=== PATIENT | female | born 1985 | race African-American/Black ===

== ENCOUNTER 2020-04-12 14:34 | Emergency (ER) | payer SELFPAY ==
[2020-04-12] MEDS ORDERED: Sodium Chloride 0.9% 10 ML Syringe FLUSH PRN (14:52)
[2020-04-12] MEDS ORDERED: fentaNYL 100 MCG/2 ML SDV IVPUSH ONE (14:52)
--- NOTE | 2020-04-12 14:57 | EDM.PDOC ---
ED HPI GENERAL MEDICAL PROBLEM - General Stated Complaint: FELL Time Seen by Provider: 04/12/20 14:39 Source of Information: Reports: Patient History Limitations: Reports: No Limitations - History of Present Illness INITIAL COMMENTS - FREE TEXT/NARRATIVE: Jessica is a 34 y/o female who comes to the ER today with pain in her right shoulder. She reports that last night about 2330 she tripped on her skirt and fell down 4 steps in her home. She was able to get up and denies any LOC with the fall. She was sore last night and had a hard time sleeping, but today the pain is getting worse in her right shoulder and she feels more achy. She did take APAP awhile ago and it has not really helped. Lower Back Pain Score (Numeric/FACES): 6 - Related Data Allergies Allergy/AdvReac Type Severity Reaction Status Date / Time ibuprofen Allergy Facial Verified 04/12/20 14:59 Swelling Home Meds: Home Meds . [No Known Home Meds] 04/12/20 [History] Review of Systems - Review of Systems Review Of Systems: See Below Constitutional: Reports: No Symptoms Eyes: Reports: No Symptoms Ears: Reports: No Symptoms Nose: Reports: No Symptoms Mouth/Throat: Reports: No Symptoms Respiratory: Reports: No Symptoms Cardiovascular: Reports: No Symptoms GI/Abdominal: Reports: No Symptoms Genitourinary: Reports: No Symptoms Musculoskeletal: Reports: Shoulder Pain (right), Back Pain Skin: Reports: No Symptoms Neurological: Reports: No Symptoms Psychiatric: Reports: No Symptoms ED EXAM, GENERAL - Physical Exam Exam: See Below Exam Limited By: No Limitations General Appearance: Alert, WD/WN, No Apparent Distress (Adult female, NAD.) Ears: Hearing Grossly Normal Nose: Normal Inspection Throat/Mouth: Normal Inspection, Normal Voice Head: Atraumatic, Normocephalic Neck: Normal Inspection, Non-Tender Respiratory/Chest: No Respiratory Distress, Lungs Clear, Chest Non-Tender Cardiovascular: Regular Rate, Rhythm GI/Abdominal: Soft, Non-Tender (Female) Exam: Deferred Rectal (Female) Exam: Deferred Back Exam: Normal Inspection Extremities: Other (note defority to right shoulder, unable to left her right arm without pain, CMS to right upper ext WNL.) Neurological: Alert, Oriented, CN II-XII Intact, Normal Cognition, Normal Gait Psychiatric: Normal Affect, Normal Mood Skin Exam: Warm, Dry, Intact, Normal Color, Decubitus Lymphatic: No Adenopathy Course - Vital Signs Text/Narrative:: The patient was seen by the COMMISS[facility] AUDITOR. XRay of her R shoulder was ordered. She was given Fentanyl 100mcg IVP for pain. 1540 Xray reviewed. No fx noted, appears without dislocation on xray and read as normal by radiologist. Patient still unable to extend arm and note right sided deformity. Patient was given Dilaudid 1mg IVP. External Rotation reduction method was used and a small click noted in the shoulder and patient had immediate relief of pain. Should immobilizer placed. Postreduction film obtained and compared to previous exam. 1605 Postreduction film appears to have humeral head more anterior, but on clinical exam patient is more comfortable and deformity to her right shoulder is resolved. Patient was given discharge instructions and left the ER in stable condition with her sister. Last Recorded V/S: Last Vital Signs Temp 36.6 C 04/12/20 14:40 Pulse 89 04/12/20 14:40 Resp 16 04/12/20 14:40 BP 138/90 04/12/20 14:40 Pulse Ox 98 04/12/20 14:40 - Orders/Labs/Meds Orders: Active Orders 24 hr Category Date Time Status Shoulder 1V Rt [CR] Stat Exams 04/12/20 15:45 Ordered Sodium Chloride 0.9% [Saline Flush] Med 04/12/20 14:52 Ordered 10 ml FLUSH ASDIRECTED PRN Saline Lock Insert [OM.PC] Stat Oth 04/12/20 14:52 Ordered Medication Orders Sodium Chloride (Saline Flush) 10 ml FLUSH ASDIRECTED PRN PRN Reason: Keep Vein Open Meds: Medications Generic Name Dose Route Start Last Admin Trade Name Freq PRN Reason Stop Dose Admin Sodium Chloride 10 ml 04/12/20 14:52 Saline Flush FLUSH ASDIRECTED PRN Keep Vein Open Discontinued Medications Generic Name Dose Route Start Last Admin Trade Name Freq PRN Reason Stop Dose Admin Fentanyl 100 mcg 04/12/20 14:52 04/12/20 15:09 Sublimaze IVPUSH 04/12/20 14:53 100 mcg ONETIME ONE Administration Hydromorphone HCl 1 mg 04/12/20 15:38 04/12/20 15:43 Dilaudid IVPUSH 04/12/20 15:39 1 mg ONETIME ONE Administration - Radiology Interpretation Free Text/Narrative:: XR Right Shoulder=no fx or dislocation (See Radiology Report) XR Right Shoulder 2V Post Reduction=no fx, appears a bit more anteriorly presented Departure - Departure Time of Disposition: 16:10 Disposition: Home, Self-Care 01 Clinical Impression: Fall Qualifiers: Encounter type: initial encounter Qualified Code(s): W19.XXXA - Unspecified fall, initial encounter Anterior dislocation of right shoulder Qualifiers: Encounter type: initial encounter Qualified Code(s): S43.014A - Anterior dislocation of right humerus, initial encounter - Discharge Information *PRESCRIPTION DRUG MONITORING PROGRAM REVIEWED*: No *COPY OF PRESCRIPTION DRUG MONITORING REPORT IN PATIENT YAYA: No Instructions: Shoulder Dislocation, [id number] Referrals: PCP,None [Primary Care Provider] - Forms: ED Department Discharge, ED Return to Work/School Form Additional Instructions: -Wear the shoulder immobilizer for 48 hours, then remove and see how you do without it. -If your pain gets worse or it seems that you cannot move your shoulder any longer, please return to the ER and you will be referred to an Orthopedic Surgeon for evaluation. -Apply ice packs to your right shoulder for comfort. -Use acetaminophen 1000 mg oral every 6 hours (Use over the counter meds) -Tramadol 50mg oral every 6 hours as needed for moderate to severe pain #8(ER) -Follow up with a primary care provider in the clinic or return to the ER for any concerns Sepsis Event Note (ED) - Focused Exam Vital Signs: Vital Signs Temp Pulse Resp BP Pulse Ox 04/12/20 14:40 36.6 C 89 16 138/90 98 - My Orders Last 24 Hours: My Active Orders 04/12/20 14:52 Sodium Chloride 0.9% [Saline Flush] 10 ml FLUSH ASDIRECTED PRN Saline Lock Insert [OM.PC] Stat 04/12/20 15:45 Shoulder 1V Rt [CR] Stat - Assessment/Plan Last 24 Hours: My Active Orders 04/12/20 14:52 Sodium Chloride 0.9% [Saline Flush] 10 ml FLUSH ASDIRECTED PRN Saline Lock Insert [OM.PC] Stat 04/12/20 15:45 Shoulder 1V Rt [CR] Stat
[2020-04-12] MEDS ORDERED: HYDROmorphone 1 MG/ML Syringe IVPUSH ONE (15:38)
--- NOTE | 2020-04-12 15:44 | CR ---
[id number] RAD/RAD Shoulder Right 2V Min EXAM: 3 VIEWS RIGHT SHOULDER. INDICATION: RIGHT SHOULDER PAIN; STATUS POST FALL. COMPARISON: None. DISCUSSION: No fracture, dislocation or other acute osseous abnormality. IMPRESSION: 1. No acute osseous abnormalities. Jamal Lepe DO 04/12/20 1543 Thank you for allowing us to participate in the care of your patient.
[2020-04-12] MEDS ORDERED: Take Home: traMADol 50 MG, 4 Tab Pack PO ONE (16:12)
--- NOTE | 2020-04-12 16:21 | CR ---
[id number] RAD/RAD Shoulder Right 2V Min EXAM: 2 VIEWS RIGHT SHOULDER. INDICATION: POST REDUCTION FILM. COMPARISON: Earlier today. DISCUSSION: Limited post reduction images are provided. No significant change in alignment when compared to the prior study. IMPRESSION: 1. As above. Jamal Lepe DO 04/12/20 1584 Thank you for allowing us to participate in the care of your patient.
== END 2020-04-12 16:21 | disposition home or self-care (01) ==
LOC: VM.ED 14:34
DX: S43.014A Anterior dislocation of right humerus, initial encounter (principal)
CPT/HCPCS: 23650; 73030-RT; 96374; 96375; 99283-25; 99283-GF; A9270-GY; J1170; J3010